=== PATIENT | female | born 1980 | race Caucasian/White ===

== ENCOUNTER 2020-04-03 14:33 | Emergency (ER) | payer BC, OTHER ==
[~2020-04-03] VITALS: Ht 165.1 cm; Wt 116.0 kg
[2020-04-03 15:28] LABS: CHLORIDE 108 mmol/L (98-107)
[2020-04-03 15:34] LABS: BASOPHILS % (AUTO) 1 % (0-1); EOSINOPHILS % (AUTO) 1 % (1-7); LYMPHOCYTES % (AUTO) 32 % (22-44); MEAN CORPUSCULAR HEMOGLOBIN 28.2 pg (27.0-34.8); MEAN CORPUSCULAR HGB CONC 33.7 g/dL (32.4-35.8); MEAN PLATELET VOLUME 7.8 fL (7.4-10.4); MONOCYTES % (AUTO) 8 % (2-9); NEUTROPHILS % (AUTO) 59 % (42-75); PLATELET COUNT 314 x10^3/uL (130-400); RED CELL DISTRIBUTION WIDTH 13.8 % (9.6-15.2)
[2020-04-03 15:35] LABS: ALANINE AMINOTRANSFERASE 94 U/L (12-78); ALBUMIN 3.4 g/dL (3.4-5.0); ALKALINE PHOSPHATASE 72 U/L (45-117); ANION GAP 9 mmol/L (5-15); BILIRUBIN,TOTAL 1.1 mg/dL (0.2-1.0); CALCIUM 9.5 mg/dL (8.5-10.1); CREATININE 0.83 mg/dL (0.55-1.02); TOTAL PROTEIN 7.5 g/dL (6.4-8.2)
[2020-04-03 15:41] LABS: MD NO
--- NOTE | 2020-04-03 16:21 | NUR ---
Davion weinstein in [facility] - 04/03/20 at 1622 by JOSSY pt from lobby to room 4
--- NOTE | 2020-04-03 16:23 | NUR ---
attempted to room pt, unable to locate pt in lobby
--- NOTE | 2020-04-03 16:42 | NUR ---
MAMMALOGIST: NO ANSWER FROM LOBBY X2 AT THIS TIME
--- NOTE | 2020-04-03 16:55 | NUR ---
BUSINESS ANALYST CONSULTANT: PT TO ROOM AT THIS TIME FROM US/LOBBY WITH HARSHIL PENA
--- NOTE | 2020-04-03 17:30 | NUR ---
Pt ambulatory to bathroom for UA, steady gait. Pt peed in hat that is unknown whether it was clean or not. Awaiting pt being able to urinate again for accurate clean cath urine.
[2020-04-03 18:22] VITALS: BP 156/78
== END 2020-04-03 18:31 | disposition home or self-care (01) ==
LOC: ED 17:57
DX: K26.3 Acute duodenal ulcer without hemorrhage or perforation (principal); R10.13 Epigastric pain; R10.11 Right upper quadrant pain; R11.10 Vomiting, unspecified; R94.31 Abnormal electrocardiogram [ECG] [EKG]; E11.9 Type 2 diabetes mellitus without complications
CPT/HCPCS: 36415; 76700; 80053; 83690; 85025; 93005; 99285

== ENCOUNTER → 2020-06-30 | Outpatient (CLI) | payer BC ==
[~2020-06-30] MED LIST: CHOL500015 PO; CLOT15CR6 TP; EMPA10TA PO; ETHI1TAB26 PO; INSU200I4 SC; LATA2.5D4 EACHEYE; LOSA25TA25 PO; LOVA20TA2 PO; METF10007 PO; MULT-658 PO; MUPI22OI2 NAS; ONDA4TAB7 PO; PANT40TA6 PO; SEMA1PEN3 INJ; TIMO1DRO6 EACHEYE
[2020-06-30 16:37] LABS: ALANINE AMINOTRANSFERASE 22 U/L (12-78); ALBUMIN 3.3 g/dL (3.4-5.0); ANION GAP 7 mmol/L (5-15); CALCIUM 8.9 mg/dL (8.5-10.1); CHLORIDE 107 mmol/L (98-107); CREATININE 0.83 mg/dL (0.55-1.02)
[2020-06-30 16:40] LABS: ALKALINE PHOSPHATASE 54 U/L (45-117); BILIRUBIN,TOTAL 0.4 mg/dL (0.2-1.0); TOTAL PROTEIN 7.6 g/dL (6.4-8.2)
== END | disposition home or self-care (01) ==
LOC: STAR 15:35
PROVIDERS: ATTEND Surgery
DX: U07.1 COVID-19 (principal); Z01.812 Encounter for preprocedural laboratory examination; K80.20 Calculus of gallbladder without cholecystitis without obstruction
CPT/HCPCS: 36415; 80053; 93005; U0003; U0005

== ENCOUNTER 2020-10-25 22:45 | Inpatient (IN) | payer BC ==
[~2020-10-25] VITALS: Ht 165.1 cm; Wt 113.3 kg
[2020-10-25] MEDS ORDERED: ONDANSETRON ODT 4 MG ONE (22:54)
[2020-10-25] MEDS ORDERED: ONDANSETRON ODT 4 MG PO ONE (23:00)
[2020-10-26] MEDS ORDERED: ONDANSETRON 2MG/ML, 2ML IVPush ONE
[2020-10-26] MEDS ORDERED: SODIUM CHLORIDE 0.9% 1,000ML IVBOLUS ONE
[2020-10-26] MEDS ORDERED: SODIUM CHLORIDE FLUSH 10ML SYR IVF ONE
[2020-10-26 00:40] LABS: BASOPHILS % (AUTO) 1 % (0-1); EOSINOPHILS % (AUTO) 0 % (1-7); LYMPHOCYTES % (AUTO) 21 % (22-44); MEAN CORPUSCULAR HEMOGLOBIN 28.3 pg (27.0-34.8); MEAN CORPUSCULAR HGB CONC 33.6 g/dL (32.4-35.8); MEAN PLATELET VOLUME 7.6 fL (7.4-10.4); MONOCYTES % (AUTO) 7 % (2-9); NEUTROPHILS % (AUTO) 71 % (42-75); PLATELET COUNT 289 x10^3/uL (130-400); RED BLOOD COUNT 5.25 x10^6/uL (3.82-5.3); RED CELL DISTRIBUTION WIDTH 14.2 % (9.6-15.2)
[2020-10-26] MEDS ORDERED: ONDANSETRON 2MG/ML, 2ML ONE (00:45)
[2020-10-26 00:52] LABS: ALBUMIN 3.2 g/dL (3.4-5.0); ANION GAP 8 mmol/L (5-15); CALCIUM 9.2 mg/dL (8.5-10.1); CHLORIDE 106 mmol/L (98-107)
[2020-10-26 00:57] LABS: ALANINE AMINOTRANSFERASE 81 U/L (12-78); ALKALINE PHOSPHATASE 65 U/L (45-117); BILIRUBIN,TOTAL 1.1 mg/dL (0.2-1.0); CREATININE 0.87 mg/dL (0.55-1.02); TOTAL PROTEIN 7.7 g/dL (6.4-8.2)
--- NOTE | 2020-10-26 01:19 | NUR ---
PIV ESBT. NSB INFUSING WELL. AT FOR EVAL. WILL CTM. GIVEN WARM BLANKET.CALL LIGHT INREACH.
[2020-10-26] MEDS ORDERED: MORPHINE SULFATE 4 MG/ML, 1ML IVPush PRN (01:30)
[2020-10-26] MEDS ORDERED: MORPHINE SULFATE 4 MG/ML, 1ML ONE (01:31)
[2020-10-26] MEDS ORDERED: PIPERACILLIN/TAZO 3.375 GM in DEXTROSE 5% 50 ML IVPB ONE (02:30)
[2020-10-26 04:15] VITALS: BP 131/87
[2020-10-26] MEDS ORDERED: hydrALAzine 20 MG/ML, 1ML IVPush PRN (05:00)
[2020-10-26] MEDS ORDERED: morphine SULFATE 10 MG/ML, 1ML IVPush PRN (05:00)
[2020-10-26] MEDS: LACTATED RINGERS 1,000 ML IV SCH ×3 (05:17→21:20)
[2020-10-26 07:44] VITALS: BP 127/81
[2020-10-26] MEDS: ONDANSETRON 2MG/ML, 2ML IVPush PRN (08:52)
[2020-10-26] MEDS: LOSARTAN 25MG TABLET PO SCH (10:03)
[2020-10-26 13:47] VITALS: BP 129/70
[2020-10-26] MEDS ORDERED: DEXTROSE 50%, 50ML SYRINGE IVPush PRN ×2 (14:00→18:30)
[2020-10-26] MEDS: ACETAMINOPHEN 325 MG TABLET PO PRN (14:28)
[2020-10-26] MEDS ORDERED: GLUCAGON 1 MG IM PRN (18:30)
[2020-10-26] MEDS ORDERED: DEXTROSE 4 GM TAB.CHEW PO PRN (18:30)
[2020-10-26 19:53] VITALS: BP 122/79
[2020-10-26] MEDS: INSULIN LISPRO 100 UNITS/ML, PEN SQ-INSULIN SCH (20:59)
[2020-10-26] MEDS: SODIUM CHLORIDE FLUSH 10ML SYR IVF SCH (21:00)
[2020-10-26] MEDS: LATANOPROST OPHTH 0.005%, 2.5ML EACHEYE SCH (21:19)
[2020-10-26] MEDS: LOVASTATIN 20 MG TABLET PO SCH (21:20)
[2020-10-27 01:44] VITALS: BP 118/80
[2020-10-27] MEDS: LACTATED RINGERS 1,000 ML IV SCH ×2 (03:49→13:00)
[2020-10-27 06:05] LABS: CHOL/HDL RATIO 3.9; LDL/HDL RATIO 1.3 (0.5-3.0)
[2020-10-27] MEDS: INSULIN LISPRO 100 UNITS/ML, PEN SQ-INSULIN SCH ×3 (07:00→16:00)
[2020-10-27 07:15] VITALS: BP 106/73
[2020-10-27] MEDS: LOSARTAN 25MG TABLET PO SCH (08:30)
[2020-10-27] MEDS: ACETAMINOPHEN 325 MG TABLET PO PRN (08:30)
[2020-10-27] MEDS: SODIUM CHLORIDE FLUSH 10ML SYR IVF SCH (09:00)
[2020-10-27 13:01] VITALS: BP 114/81
[2020-10-27] MEDS: ONDANSETRON 2MG/ML, 2ML IVPush PRN (13:07)
[2020-10-27] MEDS ORDERED: BUPIVACAINE/PF 0.25% ONE (17:09)
[2020-10-27] MEDS ORDERED: EPINEPHRINE 1 MG/ML, 1ML ONE (17:09)
[2020-10-27] MEDS ORDERED: MIDAZOLAM 1 MG/ML, 2ML ONE (17:16)
[2020-10-27] MEDS ORDERED: FENTANYL PF 250 MCG/5ML ONE (17:16)
[2020-10-27] MEDS ORDERED: METRONIDAZOLE PMX 500MG/100ML 100 ML ONE (17:26)
[2020-10-27] MEDS ORDERED: CIPROFLOXACIN/PMX 400MG/200ML 200 ML ONE (17:26)
[2020-10-27] MEDS ORDERED: MEPERIDINE/PF 25MG/0.5ML IVPush PRN (17:30)
[2020-10-27] MEDS ORDERED: hydrALAzine 20 MG/ML, 1ML IV PRN (17:30)
[2020-10-27] MEDS ORDERED: HYDROmorphone 1 MG/ML, 1ML INJ IVPush PRN (17:30)
[2020-10-27] MEDS ORDERED: PROMETHAZINE 25 MG/ML, 1ML IVPush PRN (17:30)
[2020-10-27] MEDS ORDERED: ONDANSETRON 2MG/ML, 2ML IVPush PRN (17:30)
[2020-10-27] MEDS ORDERED: OXYcodone 5 MG/5 ML ORAL.SOL UDC PO PRN (17:30)
[2020-10-27] MEDS ORDERED: LABETALOL 5MG/ML, 20ML IV PRN (17:30)
[2020-10-27] MEDS ORDERED: SUCCINYLCHOLINE 20 MG/ML, 10ML ONE (18:01)
[2020-10-27] MEDS ORDERED: PROPOFOL 10 MG/ML, 20ML ONE (18:01)
[2020-10-27] MEDS ORDERED: ROCURONIUM 10MG/ML,5ML ONE (18:01)
[2020-10-27] MEDS ORDERED: ONDANSETRON 2MG/ML, 2ML ONE ×2 (18:13→19:02)
[2020-10-27] MEDS ORDERED: DEXAMETHASONE 4 MG/ML, 5ML ONE (18:13)
[2020-10-27] MEDS ORDERED: KETOROLAC 30 MG/1 ML ONE (18:33)
[2020-10-27] MEDS ORDERED: DOCU-131 PO (18:59)
[2020-10-27] MEDS ORDERED: ONDA4TAB7 PO (18:59)
[2020-10-27] MEDS ORDERED: HYDR-2214 PO (18:59)
[2020-10-27] MEDS ORDERED: FENTANYL PF 100 MCG/2ML ONE ×2 (19:02→19:40)
[2020-10-27] MEDS: FENTANYL PF 100 MCG/2ML IV PRN ×3 (19:05→20:01)
[2020-10-27] MEDS ORDERED: CEFOTETAN 2 GM ONE (19:08)
[2020-10-27] MEDS ORDERED: PROMETHAZINE 25 MG/ML, 1ML ONE (19:40)
[2020-10-27 20:45] VITALS: BP 127/84
[2020-10-27] MEDS ORDERED: MORPHINE SULFATE 4 MG/ML, 1ML IVPush PRN (22:00)
[2020-10-28 00:01] VITALS: BP 113/78
[2020-10-28] MEDS: LOVASTATIN 20 MG TABLET PO SCH (00:19)
[2020-10-28] MEDS: HEPARIN 5,000 UNITS/ML, 1ML SQ SCH ×2 (00:21→08:01)
[2020-10-28] MEDS: HYDROcodone/APAP 5/325 TABLET PO PRN ×2 (00:21→09:23)
[2020-10-28] MEDS: LATANOPROST OPHTH 0.005%, 2.5ML EACHEYE SCH (00:21)
[2020-10-28] MEDS: ONDANSETRON 2MG/ML, 2ML IVPush PRN ×2 (00:22→09:24)
[2020-10-28] MEDS: SODIUM CHLORIDE FLUSH 10ML SYR IVF SCH ×2 (00:22→08:01)
[2020-10-28] MEDS: INSULIN LISPRO 100 UNITS/ML, PEN SQ-INSULIN SCH ×3 (01:45→11:26)
[2020-10-28] MEDS: LACTATED RINGERS 1,000 ML IV SCH ×2 (01:47→08:10)
[2020-10-28 03:51] VITALS: BP 118/75
[2020-10-28] MEDS: LOSARTAN 25MG TABLET PO SCH (08:02)
[2020-10-28 08:20] VITALS: BP 128/79
[2020-10-28 13:12] VITALS: BP 128/84
== END 2020-10-28 14:58 | disposition home or self-care (01) | DRG 419 ==
LOC: ED 10-26 01:55 → 4NE 10-26 03:34
PROVIDERS: ADMIT Internal Medicine; ATTEND Hospitalist
PROC: 0FT44ZZ Resection of Gallbladder, Percutaneous Endoscopic Approach (ICD-10-PCS; principal; 2020-10-27 17:30)
DX: K80.00 Calculus of gallbladder with acute cholecystitis without obstruction (principal); E11.9 Type 2 diabetes mellitus without complications; I10 Essential (primary) hypertension; K76.0 Fatty (change of) liver, not elsewhere classified; Z20.822 Contact with and (suspected) exposure to COVID-19; H40.9 Unspecified glaucoma; Z86.16 Personal history of COVID-19; Z87.11 Personal history of peptic ulcer disease
CPT/HCPCS: 36415; 76700; 80053; 80061; 82962; 83036; 83690; 84443; 84703; 85025; 87635; 88304; 93005; 96374; 96375; 99285; C1729; G0378; J0171; J0744; J1100; J1644; J1885; J2250; J2405; J2543; J2550; J2704; J3010; Q0162; U0005; J0330; J1815; J2270; J7030; J7120; U0003